=== PATIENT | male | born 1995 | race American Indian/Alaskan Native ===

== ENCOUNTER 2017-07-27 09:47 | Emergency (ER) | payer MEDICAID ==
--- NOTE | 2017-07-27 10:09 | C.PDOC ---
History Of Present Illness 22 year old male brought in by ambulance for public intoxication. 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 He endorses MDMA abuse prior to arrival. Patient states "I feel fine." BIBA FOR PUBLIC INTOX. WELL KNOWN @ [facility], EV ABUSE. PS +EV ABUSE [employer]. "I FEEL FINE" EXAM PSYCH +INTOX MILD AGITATION BUT CALM, COOPERATIVE. NEURO NO FOCAL DEF REMAINDER NEG Time Seen by Provider: 07/27/17 10:05 Chief Complaint (Nursing): Substance Abuse History Per: Patient History/Exam Limitations: no limitations Modifying Factor(s): Other (MDMA) Past Medical History Reviewed: Historical Data, Nursing Documentation, Vital Signs Vital Signs: Last Vital Signs Temp 98 F 07/27/17 14:15 Pulse 78 07/27/17 14:15 Resp 16 07/27/17 14:15 BP 121/71 07/27/17 14:15 Pulse Ox 98 07/28/17 09:59 Family History: States: Unknown Family Hx - Social History Hx Alcohol Use: Yes Hx Substance Use: Yes Review Of Systems Psych: Positive for: Other (Substance abuse (MDMA)) Physical Exam - Physical Exam Appears: Non-toxic, No Acute Distress Skin: Normal Color, Warm, Dry Head: Atraumatic, Normacephalic Eye(s): bilateral: Normal Inspection, PERRL, EOMI Oral Mucosa: Moist Respiratory: Other (Patient breathing normally, Speaking in full sentences) Extremity: No Pedal Edema, No Deformity Neurological/Psych: Oriented x3, Other (Intoxicated, Mild agitation but calm and cooperative, No focal deficits, Moving all extremities ) ED Course And Treatment O2 Sat by Pulse Oximetry: 98 Progress - Re-Evaluation Re-evaluation Note: 07/27/17 13:51 CLEAR SPEECH AND THOUGHT, STEADY GAIT. NO ACUTE INTOX - Data Reviewed Data Reviewed: Old records Disposition Counseled Patient/Family Regarding: Diagnosis, Need For Followup - Disposition Referrals: [facility] [Outside] [facility] [Outside] Disposition: HOME/ ROUTINE Disposition Time: 13:51 Condition: IMPROVED Instructions: Polysubstance Abuse (ED) Forms: [employer] (Vietnamese) - Clinical Impression Clinical Impression: Drug abuse - Scribe Statement The provider has reviewed the documentation as recorded by the Scribe Glenn Fitch Provider Attestation: All medical record entries made by the Scribe were at my direction and personally dictated by me. I have reviewed the chart and agree that the record accurately reflects my personal performance of the history, physical exam, medical decision making, and the department course for this patient. I have also personally directed, reviewed, and agree with the discharge instructions and disposition.
[2017-07-27 10:17] VITALS: O2SAT 98
[2017-07-27 15:20] VITALS: BP 121/71; PULSE 78; RESP 16; TEMP 98
== END 2017-07-27 15:23 | disposition home or self-care (01) ==
LOC: C.ER 09:47
DX: F19.10 Other psychoactive substance abuse, uncomplicated (principal)